=== PATIENT | male | born 2000 ===

== ENCOUNTER 2025-02-13 13:35 | Emergency (ER) | payer BC, SELFPAY ==
--- NOTE | ~2025-02-13 | XR_ITS ---
CLINICAL HISTORY: finger injury, pain 3 view left hand Comparison: None provided Findings: Bones intact. No dislocations. No significant loss of joint space or osteophytes. No erosions. No radiopaque foreign body. 2 mm radiopaque punctate object projected over the distal 1st metatarsal metaphysis, probably on skin. IMPRESSION: 1. No acute osseous injury. 2. 2 mm radiopaque punctate object projected over the distal 1st metatarsal metaphysis, likely on skin. Clinical correlation suggested. This document has been electronically signed by: Tommie Mondragon MD on 02/13/2025 14:50:59
--- NOTE | 2025-02-13 13:39 | ED_ITS ---
HPI - General Adult General Chief complaint: Extremity Injury, Upper Stated complaint: finger inj, stitches? Time Seen by Provider: 02/13/25 13:43 Source: patient Mode of arrival: ambulatory Limitations: no limitations History of Present Illness ED Provider: Delicia Caldwell PA-C HPI narrative: Patient is a 24 year old assigned male at with no reported medical history presenting to the emergency department today with a left index finger laceration. Patient states that he was in a motocross race (250cc) when he smashed his left index finger against a rock. Patient denies any other injury or loss of consciousness. Patient states that he is up to date on tetanus because he gets frequent injuries. Patient denies any other complaints at this time. Related Data Previous Rx's ?Medication ?Instructions ?Recorded amoxicillin 875 mg-potassium 1 tab PO BID 5 days #10 t abs 02/13/25 clavulanate 125 mg tablet Allergies Allergy/AdvReac Type Severity Reaction Status Date / Time No Known Allergies Allergy Verified 02/13/25 13:43 Review of Systems 2 Constitutional: Constitutional: Reports as per HPI Eyes: Eyes: Reports as per HPI ENT: Reports as per HPI Cardiovascular: Cardiovascular: Reports as per HPI Respiratory: Respiratory: Reports as per HPI Gastrointestinal: Gastrointestinal: Reports as per HPI Genitourinary: Genitourinary: Reports as per HPI Musculoskeletal: Musculoskeletal: Reports as per HPI Integumentary/Breasts: Skin/Breast: Reports as per HPI Neurologic: Reports as per HPI Psychiatric: Psychiatric: Reports as per HPI Endocrine: Endocrine: Reports as per HPI Hematologic/Lymphatic: Hematologic/Lymphatic: Reports as per HPI Allergic/Immunologic: Allergic/Immunologic: Reports as per HPI PMF Past Medical History Attestation statement: The following information was validated with the patient. Source: old records reviewed and nursing notes reviewed Social History Social History Advance Directives: No Advance Directives Information Provided: No Physical Exam ED Vital Signs: Vital Signs - 24 hr 02/13/25 13:41 Temperature 97.3 F Pulse Rate 83 Respiratory Rate 18 Blood Pressure 129/61 Pulse Oximetry 98 Oxygen Delivery Method Room Air BMI result Body Mass Index 22.5 Const General: cooperative, no acute distress, alert and awake Nutritional Appearance: well nourished Orientation/consciousness: patient oriented x3 HENMT Head: Yes normal to inspection and Yes atraumatic Ears: hearing grossly normal bilaterally and external ears normal General nose exam: Normal external nose present, no nasal discharge noted and no epistaxis Face and sinus: Yes normal facial exam, No abrasion and No laceration Mouth: Normal oral and palatal mucosa present, no drooling and no muffled voice Eyes General: appearance normal, both eyes and all related structures Periorbital: periorbital findings normal Eyelids: Yes eyelids normal Conjunctivae: conjunctivae normal Pupils: Equal, round and reactive pupils present EOM: EOMs intact bilaterally Neck Neck: Yes normal visual inspection and Yes full ROM Resp Effort & Inspection: normal respiratory effort and able to speak in complete sentences Neuro General: patient oriented x3, moves all extremities and CN's II-XI intact bilaterally Cranial nerves: Yes Equal, round and reactive pupils present Cognition (Neuro): normal cognition Extrem General: Yes full ROM and Yes capillary refill normal Hand/finger images: 2 1. 2.5cm jagged laceration, no active bleeding Psych Appearance: grossly normal Mental Status: mental status grossly normal Affect: normal affect Attitude: cooperative Thought process: Normal thought process present Thought content: Normal thought content present Insight: Good insight present (Psych) Course Course Course Narrative: Rapid medical examination performed in triage by Delicia Caldwell PA-C. Patient is a 24 year old assigned male at presenting to the emergency department with a left index finger injury. Patient is right handed. Patient is up to date on tetanus. Detailed physical exam and review of systems are deferred to the hydraulic press tender. Imaging ordered. Patient placed back in the waiting room pending room availability and results. Medications Administered Discontinued Medications Generic Name Dose Route Start Last Admin Trade Name Lluvia PRN Reason Stop Dose Admin Lidocaine HCl 10 ml 02/13/25 14:06 02/13/25 14:13 Lidocaine Hcl 1 % Mpf 5 Ml Vial SUBCUT 02/13/25 14:07 10 ml ONCE ONE Administration Procedures Laceration Left index finger: Site: other (2nd digit) Side (If applicable): left Size (cm): 2.5 Description: irregular Depth: simple, single layer Local Anesthetic: lidocaine 1% Amount of anesthesia used (mL): 10 Pre-repair: wound explored, irrigated extensively and deep structures intact Skin layer closed with: other (prolene) Size (cm): 5-0 Number of sutures: 5 Technique: simple, interrupted Nerve Block Nerve Block 1: Time out performed: Yes Local Anesthetic: lidocaine 1% Amount of anesthesia used (mL): 10 Side: left Nerve Blocks: digital Procedure Successful: Yes Patient Tolerated Procedure: well Complications: none Medical Decision Making Medical Decision Making MDM Narrative: Patient is a 24 year old assigned male at with no reported medical history presenting to the emergency department today with a left index finger laceration. Patient's physical exam was as noted in the physical exam portion of this note. Patient's left hand x-ray showed no acute process. I explained my physical exam findings as well as all test results to the patient. I answered all questions asked by the patient. Patient's left index finger laceration was repaired, per procedure note, without incident. Patient's PMS was intact prior to and after laceration repair. I stressed the importance of the patient taking his medication as directed (either prescribed or as the over the counter packaging recommends). I stressed the importance of the patient following up with his primary care provider. I stressed the importance of the patient returning to the emergency department immediately if his symptoms were to worsen or if he were to develop any dizziness, shortness of breath, difficulty breathing, chest pain, blurry vision, loss of vision, nausea, vomiting, abdominal pain, fever, chills, back pain, or any other complaints. Patient verbalized agreement and understanding with this treatment plan and discharge. Differential Diagnosis Differential Diagnoses: The differential diagnosis associated with the presentation includes Finger laceration Finger fracture Finger abrasion Finger strain Finger sprain Admission/Observation Consideration of admission/observation: Escalation of care including admission/observation considered Patient would have been admitted to the hospital had his work up had any findings where hospital admission was appropriate and his clinical presentation warranted hospital admission. Independent Interpretation I performed an independent interpretation of an: Plain X-Ray Interpretation: My interpretation is in agreement with the radiologist's impression of this imaging study. L Reason for Exam: finger injury, pain CLINICAL HISTORY: finger injury, pain 3 view left hand Comparison: None provided Findings: Bones intact. No dislocations. No significant loss of joint space or osteophytes. No erosions. No radiopaque foreign body. 2 mm radiopaque punctate object projected over the distal 1st metatarsal metaphysis, probably on skin. IMPRESSION: 1. No acute osseous injury. 2. 2 mm radiopaque punctate object projected over the distal 1st metatarsal metaphysis, likely on skin. Clinical correlation suggested. This document has been electronically signed by: Tommie Mondragon MD on 02/13/2025 14:50:59 Dictated By: Tommie Mondragon MD Signed By: Electronically signed by Tommie Mondragon MD 02/13/25 [id number] Radiology Impression Discussion of test interpretation with radiology: I have reviewed the radiologist's reading. Prescription Management I considered prescription management with: Antibiotic (given the mechanism of injury - patient prophylactically treated. ) Discharge Plan Discharge Clinical Impression: Finger laceration Patient Disposition: Home, Self-Care Instructions: Finger Laceration (ED) Additional Instructions: You need to have your (5) sutures removed in 7-10 days. Take your antibiotic as prescribed. Do NOT soak the affected area. Avoid public bodies of water such as pools, oceans, lakes, [place], etc. Perform daily wound checks and dressing changes. IF you are prescribed home medications and/or you are taking over the counter medications at home - it is very important you continue to do so as prescribed / directed unless told otherwise. Follow up with a primary care provider. Return to the emergency department immediately if your symptoms worsen or if you develop any numbness, tingling, dizziness, shortness of breath, difficulty breathing, chest pain, blurry vision, loss of vision, nausea, vomiting, abdominal pain, fever, chills, back pain, or any other complaints. L If you do not have a primary care provider - call any of the below numbers to establish and follow up with a primary care provider. [facility] Primary Care ([place]) [phone] [place] [address], [address] [facility] Primary Care ([address] [place]) [phone] [place] [address], [address] [facility], [address] [facility] Primary Care ([address] [place]) [phone] [place] [address], [address] [facility], [address] [facility] Primary Care ([place]) [phone] [place] [address], [address] [facility], [address] [facility] Family Medicine [phone] [place] [address], [address] Please see the information below about our Patient Portal. If you are not yet enrolled in the [facility] Patient Portal, you will receive an enrollment email invitation following your visit to any [facility] setting. You may also self-enroll in the Patient Portal by visiting our website: [email or web address] The following information is required to access the Patient Portal: - Your [facility] Medical Record Number - Your personal home email address (must match what is in your electronic medical record, Registration staff can assist with this) - Name - Date of Capabilities of the Patient Portal: - Message some providers - View upcoming appointments - Access your health summary, medical history, and visit history - View current conditions and allergies - View procedure and lab results - View your medications, including guidelines, side effects, and precautions - Complete pre-appointment questionnaires requested by your provider - Ready summary reports of your office visits and procedures To access the Patient Portal Mobile Mary [facility], follow these directions: - Search [employer] in the [employer] Store or [employer] Store - Download the Mary [facility] - Search for [facility] - Enter your login/password Prescriptions: New amoxicillin-pot clavulanate 875-125 mg tablet 1 tab PO BID 5 Days Qty: 10 0RF Stand Alone Forms: Work/School Release Print Language: Belarusian
[2025-02-13 13:41] VITALS: BP 129/61; PULSE 83; RESP 18; TEMP 36.3; O2SAT 98; BMI 22.5
[2025-02-13] MEDS: Lidocaine HCl 1 % MPF 5 ML VIAL 10 ML SUBCUT (14:13)
--- OUTSIDE RECORDS SUMMARY | 2025-02-13 14:43 | XMS_ITS | Encounter Summary ---
Author Organization [facility] Address [address] [place] [address] Care Team Providers Care Chief Fundraising Officer Name Role Phone Familia Vogt MD Primary Care Provider [phone] Familia Vogt MD Unavailable [phone] Alexis Drake LCSW Unavailable [phone] Encounter Details Date Type Department Care Team (Late st Contact Info) Description 01/30/2021 Scanned Document [facility] PRIMARY CARE SCAN Primary Care, Scan Social History Tobacco Use Types Packs/Day Years Used Date Smoking Tobacco: Never Smokeless Tobacco: Never Alcohol Use Standard Drinks/Week Comments No 0 (1 standard drink = 0.6 oz pur e alcohol) Sex and Gender Information Value Date Recorded Sex Assigned at Male 02/11/2024 8:53 AM EDT Legal Sex Male 11:45 AM EDT Gender Identity Male 02/11/2024 8:53 AM EDT Sexual Orientation Not on file documented as of this encounter Plan of Treatment Not on file documented as of this encounter Visit Diagnoses Not on filedocumented in this encounter Care Teams Chief Fundraising Officer Relationship Specialty Start Date End Date Familia Vogt MD [address] [place] [address] PCP - General Family Medicine 01/07/17 Familia Vogt MD [address] [place] [address] PCP - [place] Commercial Attributed 07/31/20 04/01/23 Alexis Drake LCSW [address] [place] [address] Gold Leaf Printer Clinical Social Work 02/21/21 04/10/22 documented as of this encounter
--- OUTSIDE RECORDS SUMMARY | 2025-02-13 14:44 | XMS_ITS | Encounter Summary ---
Author Organization [facility] Address [address] [place] [address] Care Team Providers Care Supplier Manager Name Role Phone Familia Vogt MD Primary Care Provider Familia Vogt MD Unavailable [phone] Alexis DrakeW Unavailable [phone] Reason for Visit * Reason Onset Date Comments Medication Refill 04/30/2021 Encounter Details Date Type Department Care Team (Late st Contact Info) Description 04/30/[address] [phone] Familia Vogt MD [address] [place] [phone] Anxiety Social History Tobacco Use Types Packs/Day Years [...] AM EDT Sexual Orientation Not on file COVID-19 Exposure Response Date Recorded In the last month, have you been in contact with someone who was confirmed or suspected to have Coronavirus / COVID-19? Unable to assess 04/24/2021 3:54 PM EST documented as of this encounter Plan of Treatment Not on file documented as of this encounter Visit Diagnoses Diagnosis Anxiety Anxiety state, unspecified documented in this encounter Care Teams Supplier Manager Relationship Specialty Start Date End Date Familia Vogt MD [address] [place] [address] PCP - General Family Medicine 01/07/17 Familia Vogt MD [address] [place] [address] PCP - [place] Commercial Attributed 07/31/20 04/01/23 Alexis Drake LCSW [address] [place] [address] Gaming Cashier Clinical Social Work 02/21/21 04/10/22 documented as of this encounter
--- OUTSIDE RECORDS SUMMARY | 2025-02-13 14:44 | XMS_ITS | Encounter Summary ---
Author Organization [facility] Address [address] [place] [address] Care Team Providers Care Press Loader Name Role Phone Familia Vogt MD Primary Care Provider [phone] Familia Vogt MD Unavailable [phone] Alexis DrakeW Unavailable [phone] Reason for Visit * Reason Onset Date Comments Medication Refill 08/06/2021 Encounter Details Date Type Department Care Team (Late st Contact Info) Description 08/06/[address] [phone] Familia Vogt MD [address] [place] [phone] Anxiety Social History Tobacco Use Types Packs/Day [...] unspecified documented in this encounter Care Teams Press Loader Relationship Specialty Start Date End Date Familia Vogt MD [address] [place] [address] PCP - General Family Medicine 01/07/17 Familia Vogt MD [address] [place] [address] PCP - [place] Commercial Attributed 07/31/20 04/01/23 Alexis Drake LCSW [address] [place] [address] Md Pediatric Allergist Clinical Social Work 02/21/21 04/10/22 documented as of this encounter
--- OUTSIDE RECORDS SUMMARY | 2025-02-13 14:44 | XMS_ITS | Encounter Summary ---
Author Organization [facility] Address [address] [place] [address] Care Team Providers Care Life Tester [employer] Name Role Phone Familia Vogt MD Primary Care Provider [phone] Familia Vogt MD Unavailable [phone] Alexis Drake LCSW Unavailable [phone] Encounter Details Date Type Department Care Team (Late st Contact Info) Description 12/14/2019 Scanned Document [facility] EMERGENCY MED SCAN Emergency Medicine, Scan Social History Tobacco Use Types Packs/Day [...] or suspected to have Coronavirus / COVID-19? No / Unsure 12/09/2019 10:14 AM EDT documented as of this encounter Plan of Treatment Not on file documented as of this encounter Visit Diagnoses Not on filedocumented in this encounter Care Teams Life Tester [employer] Relationship Specialty Start Date End Date Familia Vogt MD [address] [place] [address] PCP - General Family Medicine 01/07/17 Familia Vogt MD [address] [place] [address] PCP - [place] Commercial Attributed 07/31/20 04/01/23 Alexis Drake LCSW [address] [place] [address] Candy Starch Mold Printer Clinical Social Work 02/21/21 04/10/22 documented as of this encounter
--- OUTSIDE RECORDS SUMMARY | 2025-02-13 14:44 | XMS_ITS | Encounter Summary ---
Author Organization [facility] Address [address] [place] [address] Care Team Providers Care Lockstitch Sleeve Maker Name Role Phone Familia Vogt MD Primary Care Provider Familia Vogt MD Unavailable [phone] Alexis DrakeW Unavailable [phone] Reason for Visit * Reason Onset Date Comments Medication Refill 04/25/2021 Encounter Details Date Type Department Care Team (Late st Contact Info) Description 04/25/[address] [phone] Familia Vogt MD [address] [place] [phone] Anxiety Social History Tobacco Use Types Packs/Day [...] unspecified documented in this encounter Care Teams Lockstitch Sleeve Maker Relationship Specialty Start Date End Date Familia Vogt MD [address] [place] [address] PCP - General Family Medicine 01/07/17 Familia Vogt MD [address] [place] [address] PCP - [place] Commercial Attributed 07/31/20 04/01/23 Alexis Drake LCSW [address] [place] [address] Procurement Cost Coordinator Clinical Social Work 02/21/21 04/10/22 documented as of this encounter
--- OUTSIDE RECORDS SUMMARY | 2025-02-13 14:44 | XMS_ITS | Encounter Summary ---
Author Organization [facility] Address [address] [place] [address] Care Team Providers Care Blacksmith Assistant Name Role Phone Pcp, Nafisa Primary Care Provider Unavailabl e Familia Vogt MD Primary Care Provider Familia Vogt MD Unavailable [phone] Alexis DrakeW Unavailable [phone] Encounter Details Date Type Department Care Team (Late st Contact Info) Description 04/19/2016 Scanned Document [address] [phone] Provider, Generic Social History Tobacco Use Types Packs/Day Years Used Date Smoking Tobacco: Never Alcohol Use Standard Drinks/Week Comments Not Asked 0 (1 standard drink = 0.6 oz [...] on filedocumented in this encounter Care Teams Blacksmith Assistant Relationship Specialty Start Date End Date Pcp, No PCP - General General Medicine 04/19/16 01/06/17 Familia Vogt MD [address] [place] [address] PCP - General Family Medicine 01/07/17 Familia Vogt MD [address] [place] [address] PCP - [place] Commercial Attributed 07/31/20 04/01/23 Alexis Drake LCSW [address] [place] [address] Lithopone Charger Clinical Social Work 02/21/21 04/10/22 documented as of this encounter
--- OUTSIDE RECORDS SUMMARY | 2025-02-13 14:44 | XMS_ITS | Encounter Summary ---
Author Organization [facility] Address [address] [place] [address] Care Team Providers Care Manager Er Name Role Phone Familia Vogt MD Primary Care Provider [phone] Familia Vogt MD Unavailable [phone] Alexis DrakeW Unavailable [phone] Encounter Details Date Type Department Care Team (Late st Contact Info) Description 02/14/2021 Scanned Document [facility] PRIMARY CARE SCAN Primary Care, Scan Social [...] have Coronavirus / COVID-19? No / Unsure 02/12/2021 1:47 PM EDT documented as of this encounter Plan of Treatment Not on file documented as of this encounter Visit Diagnoses Not on filedocumented in this encounter Care Teams Manager Er Relationship Specialty Start Date End Date Familia Vogt MD [address] [place] [address] PCP - General Family Medicine 01/07/17 Familia Vogt MD [address] [place] [address] PCP - [place] Commercial Attributed 07/31/20 04/01/23 Alexis Drake LCSW [address] [place] [address] Executive Search Consultant Clinical Social Work 02/21/21 04/10/22 documented as of this encounter
--- OUTSIDE RECORDS SUMMARY | 2025-02-13 14:44 | XMS_ITS | Clinical Summary ---
Author Organization [facility] Address [address] [place] [address] Phone Care Team Providers Care Band Maker Name Role Phone Familia Reynolds MD Primary Care Provider [phone] Allergies No known active allergies Medications No known medications Active Problems Problem Noted Date Diagnosed Date Abdominal pain 09/07/2024 Stroke ([facility] V24, [facility] V28) 09/07/2024 Surgical History Surgery Date Site/Laterality Comments NO PAST SURGERIES PROCEDURE:NO PAST SURGERIES OTHER SURGICAL HISTORY 11/02/2021 Left PROCEDURE:CLOSED REDUCTION TARSAL FRACTURE;COMMENT:Procedure: ORIF LEFT NAVICULAR BONE AND TALUS; Surgeon: Dennis Tapia MD; Location: [facility] MAIN OPERATING ROOM; Service: Orthopedic Trauma; Laterality: Left; Medical History Medical History Date Comments Anxiety DX:Anxiety Social History Tobacco Use Types Packs/Day Years Used Date Smoking Tobacco: Never Smokeless Tobacco: Never Alcohol Use Standard Drinks/Week Comments Yes 3 (1 standard drink = 0.6 oz pur e alcohol) Sex and Gender Information Value Date Recorded Sex Assigned at Male 09/07/2024 10:50 PM EDT Legal Sex Male 3:47 PM EST Gender Identity Male 09/07/2024 10:50 PM EDT Sexual Orientation Not on file Obstetrics History Last Filed Vital Signs Vital Sign Reading Time Taken Comments Blood Pressure 124/89 09/08/2024 12:32 AM EDT Pulse 75 09/08/2024 12:32 AM EDT Temperature 36.7 C (98.1 F) 09/08/2024 12:32 AM EDT Respiratory Rate 18 09/08/2024 12:32 AM EDT Oxygen Saturation 98% 09/08/2024 12:32 AM EDT Inhaled Oxygen Concentration - - Weight 84.8 kg (187 lb) 09/07/2024 10:16 PM EDT Height 190.5 cm (6' 3 ) 09/07/2024 10:16 PM EDT Body Mass Index 23.37 09/07/2024 10:16 PM EDT Plan of Treatment Health Maintenance Due Date Last Done Comments HPV Vaccines (2 - Male 2-dose series) 12/14/2014 06/16/2014 DTaP,Tdap,and Td Vaccines (7 - Td or Tdap) 01/04/2021 01/04/2011, 03/09/2004, 11/19/2000, Additional history exists Social Influencers of Health Screening 05/01/2022 Depression Screening 06/02/2024 COVID-19 Vaccine ( season) 2025 Influenza Vaccine (#1) 2025 Hepatitis B Vaccines Completed 02/19/2000, 1999, 1999 HIB Vaccines Completed 11/19/2000, 01/31, 1999, Additional history exists IPV Vaccines Completed 03/09/2004, 01/31, 1999, Additional history exists MMR Vaccines Completed 03/09/2004, 08/18/2000 Pneumococcal Vaccine: Pediatrics (0 to 5 Years) and At-Risk Patients (6 to 49 Years) Completed 03/09/2004, 04/03/2000, 02/19/2000 Varicella Vaccines Completed 10/27/2008, 08/18/2000 Meningococcal ACWY Vaccine Aged Out 01/04/2011 N o longer eligible based on patient's age to complete this topic HIV Screening Completed 09/08/2024 Hepatitis C Screening Completed 09/08/2024 Hepatitis A Vaccines Aged Out No long er eligible based on patient's age to complete this topic Meningococcal B Vaccine Aged Out No l onger eligible based on patient's age to complete this topic RSV Immunization Patients Under 20 months Aged Out No longer eligible based on patient's age to complete this topic Medical Devices Implanted Type Area Oral Pathologist Device Identifier Shelf Expiration Date Model / Serial / Lot Bone Chip Canc 5ml Container [facility] [id number] - [id number] Implanted:Qty: 1 on 11/02/2021 by Dennis Tapia MD Left: Foot MUSCULOSKELETAL TRANSPLANT FND 06/08/2024 [id number] / [id number] / Screw Lcking 2.7x18mm Thrd T8 Stry-Tram [id number] Implanted:Qty: 1 on 11/02/2021 by Dennis Tapia MD Left: Foot [employer] [id number] / / Screw Bone 2.7x32mm Thrd T8 Stry-Tram [id number] Implanted:Qty: 1 on 11/02/2021 by Dennis Tapia MD Left: Foot [employer] [id number] / / Bone Graft Hydroset Xt 5ml Stry-Obio [id number] Implanted:Qty: 1 on 11/02/2021 by Dennis Tapia MD Left: Foot [employer] 01/29/2023 [id number] / / [id number] Navicular Plates Implanted:Qty: 1 on 11/02/2021 by Dennis Tapia MD Left: Foot [employer]E [employer] [id number] / / Screw 30mm T8 Fullthrd 2.7mm L Stry-Howm [id number] Implanted:Qty: 2 on 11/02/2021 by Dennis Tapia MD Left: Foot [employer] [id number] / / Screw 36mm T8 Fullthrd 2.7mm S Stry-Howm [id number] Implanted:Qty: 1 on 11/02/2021 by Dennis Tapia MD Left: Foot [employer] [id number] / / 40 Mm 2.0. Screw Implanted:Qty: 1 on 11/02/2021 by Dennis Tapia MD Left: Foot [employer] [id number] / / Screw 40mm T8 Fullthrd 2.7mm L Stry-Howm [id number] Implanted:Qty: 1 on 11/02/2021 by Dennis Tapia MD Left: Foot [employer] [id number] / / Screw Lcking 2.7x22mm Thrd T8 Stry-Tram [id number] Implanted:Qty: 1 on 11/02/2021 by Dennis Tapia MD Left: Foot [employer] [id number] / / Screw Locking 2.7mm T8 Variax Stry-Howm [id number] Implanted:Qty: 1 on 11/02/2021 by Dennis Tapia MD Left: Foot [employer] [id number] / / Procedures Procedure Name Priority Date/Time Associated Diagnosis Comments HEPATITIS PANEL, ACUTE STAT 12:25 AM EDT HIV 1, 2 ANTIBODY, P24 ANTIGEN WITH REFLEX TO DIFFERENTIATION STAT 09/08/2024 12:25 AM EDT from Last 3 Months or Most Recently Relevant to Health Maintenance Results * HIV 1,2 antibody, p24 antigen with reflex to differentiation (09/08/2024 12:25 AM EDT) Pathologist [facility] HIV Combo AB/AG Negative Negative LAB CHEMISTRY METHOD 09/08/2024 1:58 PM EDT [facility] Blood Venous blood specimen / Unknown Venipuncture / Unknown 09/08/2024 12:25 AM EDT 09/08/2024 12:29 AM EDT Narrative [facility] - 09/08/2024 1:58 PM EDT Nonreactive result does not rule out HIV infection. us Dennis Chambers MD LAB BLOOD ORDERABLES Final Res ult [facility] [address] [place] [address], [place] [phone] * Hepatitis panel, acute (09/08/2024 12:25 AM EDT) Hepatitis B Surface Ag Negative Negative LAB CHEMISTRY METHOD 09/08/2024 2:03 PM EDT [facility] Hepatitis A Antibody IgM Negative Negative LAB CHEMISTRY METHOD 09/08/2024 2:03 PM EDT [facility] Hep B Core IgM Negative Negative LAB CHEMISTRY METHOD 09/08/2024 2:03 PM EDT [facility] Hepatitis C Antibody Negative Negative LAB CHEMISTRY METHOD 09/08/2024 2:03 PM EDT [facility] Blood Venous blood specimen / Unknown Venipuncture / Unknown 09/08/2024 12:25 AM EDT 09/08/2024 12:29 AM EDT us Dennis Chambers MD LAB BLOOD ORDERABLES Final Res ult [facility] [address] [place] [address], [place] [phone] from Last 3 Months or Most Recently Relevant to Health Maintenance Insurance [facility] Care Teams Band Maker Relationship Specialty Start Date End Date Familia Reynolds MD [address] [place] [address] PCP - General Psychiatry 09/25/15
--- OUTSIDE RECORDS SUMMARY | 2025-02-13 14:44 | XMS_ITS | Encounter Summary ---
Author Organization [facility] Address [address] [place] [address] Care Team Providers Care Commercial Credit Officer Name Role Phone Familia Vogt MD Primary Care Provider Familia Vogt MD Unavailable [phone] Alexis DrakeW Unavailable [phone] Reason for Visit * Reason Comments Medication Refill Encounter Details Date Type Department Care Team (Late st Contact Info) Description 04/17/[address] [phone] Familia Vogt MD [address] [place], [place] [phone] Anxiety Social History Tobacco Use Types Packs/Day [...] unspecified documented in this encounter Care Teams Commercial Credit Officer Relationship Specialty Start Date End Date Familia Vogt MD [address] [phone] PCP - General Family Medicine 01/07/17 Familia Vogt MD [address] [place] [address] PCP - [place] Commercial Attributed 07/31/20 04/01/23 Alexis Drake LCSW [address] [place] [address] Scroll Assembler Clinical Social Work 02/21/21 04/10/22 documented as of this encounter
--- OUTSIDE RECORDS SUMMARY | 2025-02-13 14:44 | XMS_ITS | Encounter Summary ---
Author Organization [facility] Address [address] [place] [address] Care Team Providers Care Wood Patternmaker Apprentice Name Role Phone Familia Vogt MD Primary Care Provider [phone] Familia Vogt MD Unavailable [phone] Alexis DrakeW Unavailable [phone] Encounter Details Date Type Department Care Team (Late st Contact Info) Description 02/06/2021 Scanned Document [address] [phone] Familia Vogt MD [address] [place] [address] [phone] Social History Tobacco Use Types Packs/Day Years [...] on filedocumented in this encounter Care Teams Wood Patternmaker Apprentice Relationship Specialty [place] [address] [place] [address] [phone] PCP - General Family Medicine 01/07/17 Familia Vogt MD [address] [place], [place] [phone] PCP - [place] Commercial Attributed 07/31/20 04/01/23 Alexis Drake LCSW [address] [place] [address] Magnetizer Clinical Social Work 02/21/21 04/10/22 documented as of this encounter
--- OUTSIDE RECORDS SUMMARY | 2025-02-13 14:44 | XMS_ITS | Encounter Summary ---
Author Organization [facility] Address [address] [place] [address] Care Team Providers Care Tinsel Machine Operator Name Role Phone Familia Vogt MD Primary Care Provider [phone] Familia Vogt MD Unavailable [phone] Alexis DrakeW Unavailable [phone] Encounter Details Date Type Department Care Team (Late st Contact Info) Description 12/22/[address] [phone] Familia Vogt MD [address] [place], [place] [phone] Social History Tobacco Use Types Packs/Day Years [...] on file documented as of this encounter Miscellaneous Notes * Telephone Encounter - Go Macedo LPN - 12/22/2021 2:59 PM EDT ASSISTANT PROFESSOR OF SURGERY MSG: Holly- mom called, requested refill of lexapro Advised provider sent this rx in today and to contact [facility] documented in this encounter Plan of Treatment Not on file documented as of this encounter Visit Diagnoses Not on filedocumented in this encounter Care Teams Tinsel Machine Operator Relationship Specialty Start Date End Date Familia Vogt MD [address] [place] [place] [address] PCP - General Family Medicine 01/07/17 Familia Vogt MD [address] [place] [address] PCP - [place] Commercial Attributed 07/31/20 04/01/23 Alexis Drake LCSW [address] [place] [address] School Based Therapist Clinical Social Work 02/21/21 04/10/22 documented as of this encounter
--- OUTSIDE RECORDS SUMMARY | 2025-02-13 14:44 | XMS_ITS ---
Author Name [facility] Organization Unknown Results Test Name/Text Value Interpretation Date Range Source N gonorrhoea rRNA Spec Ql Probe Negative [facility] C trach rRNA Spec Ql Probe Negative Normal [facility] HSV1 DNA Spec Ql JASMYN+probe Not detected Normal 09/14/2024 - [facility] Specimen source Cvx/Vag Cyto Blood - Plasma Normal [address] [facility] HSV2 DNA Spec Ql JASMYN+probe Not detected Normal 09/14/2024 - [facility] RPR Ser Ql Nonreactive Normal [facility] HBV surface Ag SerPl Ql IA Negative Normal 09/08/2024 - [facility] HAV IgM SerPl Ql IA Negative Normal [facility] HBV core IgM SerPl Ql IA Negative Normal 09/08/2024 - [facility] HCV Ab SerPl Ql IA Negative Normal 09/08/2024 - [facility] HIV 1+2 Ab+HIV1 p24 Ag SerPl Ql IA Negative Normal 09/08/2024 - [facility] History of Medication Use Medication Directions Dispensed Refills Start Date End Date Stat HYDROmorphone (DILAUDID) injection 0.5 mg 0.5 mg, Intravenous, Once, On 02/07/24 at 1215, For 1 doseAdminister IV push over 2-3 minutes. 02/07/2024 completed oxyCODONE (ROXICODONE) 5 MG immediate release tablet Take 1 tablet (5 mg total) by mouth every 6 (six) hours as needed for pain for up to 10 doses. 02/07/2024 active Clobetasol Prop Emollient Base (Clobetasol Propionate E) 0.05 % emollient cream Apply 1 Application topically 2 (two) times a day for 7 days. 09/05/2023 active diphenhydrAMINE-zin c acetate (Benadryl Extra Strength) cream Apply topically 3 (three) times a day as needed for itching. 09/05/2023 active escitalopram (LEXAPRO) 20 MG tablet Take 1 tablet (20 mg total) by mouth daily. 04/05/2022 active escitalopram (LEXAPRO) 20 MG tablet Take 1 tablet (20 mg total) by mouth daily. 04/30/2021 active clonazePAM (KlonoPIN) 1 MG tablet Take 1 tablet (1 mg total) by mouth 2 (two) times a day as needed. 03/28/2021 active No known medications No known medications active Problems Problem Status Onset Date Problem Type Date of Resoluti on Source Fall active EncounterDiagnosisAct [facility] Seizure active 2020-05-04 ProblemAct [facility] Stroke active 2024-09-07 ProblemAct [facility] Colitis active 2019-12-03 ProblemAct [facility] Multiple abrasions active EncounterDiagnosisAct [facility] Muscle strain of right wrist active EncounterDiagnosisAct [facility] H Possible exposure to STI active EncounterDiagnosisAct [facility] Abdominal pain active 2024-09-07 ProblemAct [facility] Anxiety active 2021-02-12 [facility] Immun[facility] Vaccine Date Source Lot Number Status HPV Quadrivalent 06/16/2014 CCT [id number] complete d Meningococcal MCV4P (Menactra) 01/04/2011 CCT [id number] AA completed Tdap 01/04/2011 CCT [id number] completed Influenza Inactivated/Split Preservative Free IM 03/17/2009 CCT [id number] completed Varicella 10/27/2008 CCT [id number] completed DTaP 5 03/09/2004 [facility] completed IPV 03/09/2004 [facility] completed MMR 03/09/2004 CCT completed Pneumococcal Conjugate 7-Valent 03/09/2004 [facility] completed IPV 02/16/2001 CCT completed DTaP 5 11/19/2000 CCT completed Hib (PRP-OMP) 11/19/2000 CCT completed MMR 08/18/2000 CCT completed Varicella 08/18/2000 [facility] completed DTaP 5 02/19/2000 [facility] completed Hepatitis B 02/19/2000 [facility] completed Hib (PRP-OMP) 02/19/2000 [facility] completed Pneumococcal Conjugate 7-Valent 02/19/2000 [facility] completed DTaP 5 1999 [facility] completed Hib (PRP-OMP) 1999 [facility] completed IPV 1999 [facility] completed DTaP 5 1999 [facility] completed Hib (PRP-OMP) 1999 [facility] completed IPV 1999 [facility] completed Hepatitis B 1999 [facility] completed Hepatitis B 1999 [facility] completed Encounters Encounter Type Encounter Reason Primary Diagnosis Location Date Ambulatory Contact with and (suspected) exposure to other bacterial communicable diseases Contact with and (suspected) exposure to other bacterial communicable diseases [facility] 09/29/2024 Inpatient POSSIBLE STD Contact with and (suspected) exposure to infections with a predominantly sexual mode of transmission [facility] 09/07/2024 Ambulatory [facility] 03/12/2024 Ambulatory Abrasion, left lower leg, subsequent encounter Abrasion, left lower leg, subsequent encounter [facility] 02/11/2024 Ambulatory [facility] 02/10/2024 Ambulatory [facility] 02/10/2024 Emergency Unspecified fall, initial encounter Unspecified fall, initial encounter [facility] 02/07/2024 Ambulatory Allergic contact dermatitis due to plants, except food Allergic contact dermatitis due to plants, except food [facility] 11/03/2023 Emergency Allergic contact dermatitis due to plants, except food Allergic contact dermatitis due to plants, except food [facility] 09/05/2023 Emergency Localized enlarged lymph nodes Localized enlarged lymph nodes [facility] 05/18/2023 Ambulatory COVID-19 COVID-19 [facility] 03/11/2023 Ambulatory Unspecified acute conjunctivitis, left eye Unspecified acute conjunctivitis, left eye [facility] 01/06/2023 Emergency Unspecified spra in of unspecified foot, initial encounter [facility] 11/30/2022 Ambulatory Encounter for preprocedural laboratory examination [facility] 11/01/2021 Ambulatory Acute maxillary sinusitis, unspecified [facility] 04/24/2021 Care Team Organization Name Specialty Phone Email Start Date End [facility] 12/30/2024 [facility] 09/30/2024 10/29/2024 [facility] 09/25/2024 [facility] 09/11/2024 [facility] 09/08/2024 [facility] 04/16/2024 025 [facility] 06/22/2023 [facility] 11/30/2022 12/14/2024 [facility] 11/3011/30/2022 [facility] 11/01/2021 10/30/19 [facility] 04/24/2021 04/24/2021
--- OUTSIDE RECORDS SUMMARY | 2025-02-13 14:44 | XMS_ITS | Encounter Summary ---
Author Organization [facility] Address [address] [place] [address] Care Team Providers Care Stretch Box Tender Name Role Phone Familia Vogt MD Primary Care Provider Familia Vogt MD Unavailable [phone] Alexis DrakeW Unavailable [phone] Reason for Visit * Reason Comments Medication Refill Encounter Details Date Type Department Care Team (Late st Contact Info) Description 07/22/[address] [phone] Familia Vogt MD [address] [place], [place] [phone] Anxiety Social History Tobacco Use Types Packs/Day [...] unspecified documented in this encounter Care Teams Stretch Box Tender Relationship Specialty Start Date End Date Familia Vogt MD [address] [phone] PCP - General Family Medicine 01/07/17 Familia Vogt MD [address] [place] [address] PCP - [place] Commercial Attributed 07/31/20 04/01/23 Alexis Drake LCSW [address] [place] [address] Rn Field Case Manager Clinical Social Work 02/21/21 04/10/22 documented as of this encounter
--- OUTSIDE RECORDS SUMMARY | 2025-02-13 14:44 | XMS_ITS | Encounter Summary ---
Author Organization [facility] Address [address] [place] [address] Care Team Providers Care Dental Office Receptionist Name Role Phone Familia Vogt MD Primary Care Provider [phone] Familia Vogt MD Unavailable [phone] Alexis DrakeW Unavailable [phone] Encounter Details Date Type Department Care Team (Late st Contact Info) Description 02/16/[address] [phone] Familia Vogt MD [address] [place] [phone] Social History Tobacco Use Types Packs/Day Years [...] encounter Miscellaneous Notes * Telephone Encounter - Aimee Ramsay MA - 02/19/2018 10:15 AM EDT TCT pt, n/a. Sent letter to call our office for a message. * Telephone Encounter - Aimee Ramsay MA - 02/18/2018 10:31 AM EDT TCT pt, lm for c/b. * Telephone Encounter - Aimee Ramsay MA - 02/17/2018 2:53 PM EDT TCT pt, lm for c/b. * Telephone Encounter - Familia Vogt MD - 02/16/2018 5:33 PM EDT Needs appt here to examine, unless he was already seen somewhere else? * Telephone Encounter - Aimee Ramsay MA - 02/16/2018 4:51 PM EDT Looks like the patient has not seen you for this medical issues. Apt first, before PT? * Telephone Encounter - Su Anderson - 02/16/2018 11:39 AM EDT Patient has a partial tear in his clafe muscle that's not getting better, wondering if he can have a referral to PT documented in this encounter Plan of Treatment Not on file documented as of this encounter Visit Diagnoses Not on filedocumented in this encounter Care Teams Dental Office Receptionist Relationship Specialty Start Date End Date Familia Vogt MD [address] [place] [address] PCP - General Family Medicine 01/07/17 Familia Vogt MD [address] [place] [address] PCP - [place] Commercial Attributed 07/31/20 04/01/23 Alexis Drake LCSW [address] [place] [address] Cooker Helper Clinical Social Work 02/21/21 04/10/22 documented as of this encounter
--- OUTSIDE RECORDS SUMMARY | 2025-02-13 14:44 | XMS_ITS | Encounter Summary ---
Author Organization [facility] Address [address] [place] [address] Care Team Providers Care Compression Molding Machine Operator Name Role Phone Familia Vogt MD Primary Care Provider Familia Vogt MD Unavailable [phone] Alexis DrakeW Unavailable [phone] Reason for Visit * Reason Onset Date Comments Medication Refill 12/14/2021 Encounter Details Date Type Department Care Team (Late st Contact Info) Description 12/14/[address] [phone] [place] [address] [place] [phone] Anxiety Social History Tobacco Use Types Packs/Day [...] unspecified documented in this encounter Care Teams Compression Molding Machine Operator Relationship Specialty Start Date End Date Familia Vogt MD [address] [place] [address] PCP - General Family Medicine 01/07/17 Familia Vogt MD [address] [place] [address] PCP - [place] Commercial Attributed 07/31/20 04/01/23 Alexis Drake LCSW [address] [place] [address] Swage Toolsetter Clinical Social Work 02/21/21 04/10/22 documented as of this encounter
--- OUTSIDE RECORDS SUMMARY | 2025-02-13 14:44 | XMS_ITS | Encounter Summary ---
Author Organization [facility] Address [address] [place] [address] Care Team Providers Care Dot Compliance Specialist Name Role Phone Familia Vogt MD Primary Care Provider [phone] Reason for Visit * Reason Comments Appointment Talked to Dr Vogt o n the phone about light sensitivity and getting a tint exeption for his car and there are no appts coming up with him he would like a call back Encounter Details Date Type Department Care Team (Late st Contact Info) Description 09/10/2024 Telephone [facility] [address] [place] [address] Familia Vogt MD [address] [place] [address] Appointment (Talked to Dr Vogt on the phone about light sensitivity and getting a tint exeption for his car and there are no appts coming up with him he would like a call back) Social History Tobacco Use Types Packs/Day Years [...] on filedocumented in this encounter Care Teams Dot Compliance Specialist Relationship Specialty Start Date End Date Familia Vogt MD [address] [place] [address] PCP - General Family Medicine 01/07/17 documented as of this encounter
--- OUTSIDE RECORDS SUMMARY | 2025-02-13 14:44 | XMS_ITS | Encounter Summary ---
Author Organization [facility] Address [address] [place] [address] Care Team Providers Care Orange Grower Name Role Phone Familia Vogt MD Primary Care Provider [phone] Familia Vogt MD Unavailable [phone] Alexis DrakeW Unavailable [phone] Reason for Visit * Reason Comments Medication Refill Encounter Details Date Type Department Care Team (Late st Contact Info) Description 08/09/[address] [phone] Familia Vogt MD [address] [place], [place] [address] Anxiety Social History Tobacco Use Types Packs/Day [...] unspecified documented in this encounter Care Teams Orange Grower Relationship Specialty Start Date End Date Familia Vogt MD [address] [phone] PCP - General Family Medicine 01/07/17 Familia Vogt MD [address] [place] [address] PCP - [place] Commercial Attributed 07/31/20 04/01/23 Alexis Drake LCSW [address] [place] [address] Circulating Process Inspector Clinical Social Work 02/21/21 04/10/22 documented as of this encounter
--- OUTSIDE RECORDS SUMMARY | 2025-02-13 14:44 | XMS_ITS | Encounter Summary ---
Author Organization [facility] Address [address] [place] [address] Care Team Providers Care Wood Heel Flap Inserter Name Role Phone Familia Vogt MD Primary Care Provider [phone] Familia Vogt MD Unavailable [phone] Alexis DrakeW Unavailable [phone] Reason for Visit * Reason Comments Medication Refill Encounter Details Date Type Department Care Team (Late st Contact Info) Description 10/31/[address] [phone] Familia Vogt MD [address] [place], [place] [address] Anxiety Social History Tobacco Use Types Packs/Day [...] unspecified documented in this encounter Care Teams Wood Heel Flap Inserter Relationship Specialty Start Date End Date Familia Vogt MD [address] [phone] PCP - General Family Medicine 01/07/17 Familia Vogt MD [address] [place] [address] PCP - [place] Commercial Attributed 07/31/20 04/01/23 Alexis Drake LCSW [address] [place] [address] Agency Sales Development Associate Clinical Social Work 02/21/21 04/10/22 documented as of this encounter
--- OUTSIDE RECORDS SUMMARY | 2025-02-13 14:44 | XMS_ITS | Clinical Summary ---
Author Organization [facility] Address [address] [place] [address] Care Team Providers Care Hospital Housekeeper Name Role Phone Gail CABA MD, [facility] Primary Care Provider Allergies No known active allergies Medications Medication Sig Dispensed Refills Start Date End Date Status clonazePAM (KlonoPIN) 1 MG tablet Take 1 tablet (1 mg total) by mouth 2 (two) times a day as needed. 0 03/28/2021 Active escitalopram (LEXAPRO) 20 MG tablet Take 1 tablet (20 mg total) by mouth daily. 0 04/30/2021 Active acetaminophen (TYLENOL) 325 MG tablet Take 3 tablets (975 mg total) by mouth every 8 (eight) hours as needed for pain. 60 tablet 0 11/02/2021 Active senna-docusate (Senokot S) 8.6-50 MG Take 1 tablet by mouth daily. Take this medication while on narcotics to prevent constipation. 60 tablet 0 11/02/2021 Active meloxicam (Mobic) 15 MG tablet Take 1 tablet (15 mg total) by mouth daily. 30 tablet 0 01/30/2022 Active ibuprofen 800 MG tablet Take 1 tablet (800 mg total) by mouth every 8 (eight) hours as needed for pain for up to 15 doses. 15 tablet 0 05/18/2023 Active diphenhydrAMINE-zin c acetate (Benadryl Extra Strength) cream Apply topically 3 (three) times a day as needed for itching. 28.4 g 0 09/05/2023 Active oxyCODONE (ROXICODONE) 5 MG immediate release tablet Take 1 tablet (5 mg total) by mouth every 6 (six) hours as needed for pain for up to 10 doses. 10 tablet 0 02/07/2024 Active Active Problems Problem Noted Date Diagnosed Date Seizure 05/04/2020 Colitis 12/03/2019 Social History Tobacco Use Types Packs/Day Years Used Date Smoking Tobacco: Never Smokeless Tobacco: Never Alcohol Use Standard Drinks/Week Comments Yes 3 (1 standard drink = 0.6 oz pur e alcohol) Sex and Gender Information Value Date Recorded Sex Assigned at Male 01/05/2019 3:31 PM EDT Gender Identity Male 05/18/2023 1:51 PM EST Sexual Orientation Not on file Job Start Date Occupation Industry Not on file Not on file Not on file Last Filed Vital Signs Vital Sign Reading Time Taken Comments Blood Pressure 134/68 02/07/2024 2:28 PM EDT Pulse 66 02/07/2024 2:28 PM EDT Temperature 36.4 C (97.6 F) 02/07/2024 2:28 PM EDT Respiratory Rate 18 02/07/2024 2:28 PM EDT Oxygen Saturation 99% 02/07/2024 2:28 PM EDT Inhaled Oxygen Concentration - - Weight 87.1 kg (192 lb) 02/07/2024 11:42 AM EDT Height 190.5 cm (6' 3 ) 02/07/2024 11:42 AM EDT Body Mass Index 24 02/07/2024 11:42 AM EDT Plan of Treatment Health Maintenance Due Date Last Done Comments Hepatitis C Screening 1999 COVID-19 Vaccine (#1) 02/15/2000 Depression Screening 2011 Preventative Health Evaluation 08/14/2017 DTap / Tdap / Td (7 - Td or Tdap) 01/04/2021 01/04/2011, 03/09/2004, 03/09/2004, Additional history exists Influenza Vaccine (#1) 2025 Hepatitis B Vaccines Completed 02/19/2000, 02/19/2000, 1999, Additional history exists Pneumococcal Vaccine Completed 03/09/2004, 04/03/2000, 02/19/2000 RSV Ped < 20 months Aged Out No longe r eligible based on patient's age to complete this topic Medical Devices Implanted Type Area Combat Systems Operator Mine Warfare Device Identifier Shelf Expiration Date Model / Serial / Lot Bone Chip Canc 5ml Container [facility] [id number] - [id number] Implanted:Qty: 1 on 11/02/2021 by Dennis Tapia MD at [facility] Left: Foot MUSCULOSKELETAL TRANSP FNDTN 06/08/2024 [id number] / [id number] / Screw Lcking 2.7x22mm Thrd T8 Stry-Tram [id number] - [id number] Implanted:Qty: 1 on 11/02/2021 by Dennis Tapia MD at [facility] Left: Foot [employer] [id number] / / Screw Locking 2.7mm T8 Variax Stry-Howm [id number] - [id number] Implanted:Qty: 1 on 11/02/2021 by Dennis Tapia MD at [facility] Left: Foot [employer] [id number] / / Screw Lcking 2.7x18mm Thrd T8 Stry-Tram [id number] - [id number] Implanted:Qty: 1 on 11/02/2021 by Dennis Tapia MD at [facility] Left: Foot [employer] [id number] / / Screw Bone 2.7x32mm Thrd T8 Stry-Tram [id number] - [id number] Implanted:Qty: 1 on 11/02/2021 by Dennis Tapia MD at [facility] Left: Foot [employer] [id number] / / Bone Graft Hydroset Xt 5ml Stry-Obio [id number] - [id number] Implanted:Qty: 1 on 11/02/2021 by Dennis Tapia MD at [facility] Left: Foot [employer] 01/29/2023 [id number] / / [id number] Navicular Plates Implanted:Qty: 1 on 11/02/2021 by Dennis Tapia MD at [facility] Left: Foot [employer] [id number] / / Screw 30mm T8 Fullthrd 2.7mm L Stry-Howm [id number] - [id number] Implanted:Qty: 2 on 11/02/2021 by Dennis Tapia MD at [facility] Left: Foot [employer] [id number] / / Screw 36mm T8 Fullthrd 2.7mm S Stry-Howm [id number] - [id number] Implanted:Qty: 1 on 11/02/2021 by Dennis Tapia MD at [facility] Left: Foot [employer] [id number] / / 40 Mm 2.0. Screw Implanted:Qty: 1 on 11/02/2021 by Dennis Tapia MD at [facility] Left: Foot [employer] [id number] / / Screw 40mm T8 Fullthrd 2.7mm L Stry-Howm 936261-227656 - [id number] Implanted:Qty: 1 on 11/02/2021 by Dennis Tapia MD at [facility] Left: Foot [employer] [id number] / / Explanted Type Area Combat Systems Operator Mine Warfare Device Identifier Shelf Expiration Date Model / Serial / Lot Screw 40mm T8 Fullthrd 2.7mm L Stry-Howm [id number] - [id number] Explanted:Qty: 1 on 11/02/2021 by Dennis Tapia MD at [facility] Left: Foot [employer] [id number] / / Screw 36mm T8 Fullthrd 2.7mm S Stry-Howm [id number] - [id number] Explanted:Qty: 1 on 11/02/2021 by Dennis Tapia MD at [facility] Left: Foot [employer] [id number] / / Screw 45mm T8 Fullthrd 2.7mm S Stry-Howm [id number] - [id number] Explanted:Qty: 1 on 11/02/2021 by Dennis Tapia MD at [facility] Left: Foot [employer] [id number] / / Bone Screw T8 Ft 2.7x50mm Stry-Howm [id number] - [id number] Explanted:Qty: 1 on 11/02/2021 by Dennis Tapia MD at [facility] Left: Foot [employer] [id number] / / Advance Directives For more information, please contact: [phone] Latest Code Status on File Code Status Date Activated Date Inactivated Comments Full Code 05/04/2020 10:49 PM 05/05/2020 3:19 PM This code status was ascertained in the following way: Discussed with pt . Code Status History Code Status Date Activated Date Inactivated Comments Full Code 12/03/2019 12:23 PM 12/05/2019 5:52 PM This c ode status was ascertained in the following way: discussion with patient . Care Teams Hospital Housekeeper Relationship Specialty Start Date End Date Familia Reynolds III, MD [address] [facility] [address], [place] [address] PCP - General Psychiatry 09/25/15
--- OUTSIDE RECORDS SUMMARY | 2025-02-13 14:44 | XMS_ITS | Clinical Summary ---
Author Organization [facility] Address [address] [place] [address] Care Team Providers Care Art Department Head Name Role Phone Familia Vogt MD Primary Care Provider [phone] Source Comments Please note that some or all of the patient's information could have additional privacy protections. State laws allow health care providers to render certain types of treatment to minors without parental consent. Please do not assume that this information can be shared solely by obtaining just the consent of the patient's parent/guardian. Please determine if all or part of the patient's care was rendered without parent/guardian involvement. And, if so, obtain the minor's consent prior to disclosure.[facility] Social History Tobacco Use Types Packs/Day Years Used Date Smoking Tobacco: Never Assessed Sex and Gender Information Value Date Recorded Sex Assigned at Not on file Legal Sex Male 2:16 AM EST Gender Identity Not on file Sexual Orientation Not on file Plan of Treatment Not on file Insurance [employer] Care Teams Art Department Head Relationship Specialty Start Date End Date Familia Vogt MD [address] [place] [address] PCP - General 06/18/13
--- OUTSIDE RECORDS SUMMARY | 2025-02-13 14:44 | XMS_ITS | Encounter Summary ---
Author Organization [facility] Address [address] [place] [address] Care Team Providers Care Electric Fan Assembler Name Role Phone Familia Vogt MD Primary Care Provider [phone] Familia Vogt MD Unavailable [phone] Alexis DrakeW Unavailable [phone] Encounter Details Date Type Department Care Team (Late st Contact Info) Description 02/13/2021 Scanned Document [facility] PRIMARY CARE SCAN Primary Care, Scan Social [...] on filedocumented in this encounter Care Teams Electric Fan Assembler Relationship Specialty Start Date End Date Familia Vogt MD [address] [place] [address] PCP - General Family Medicine 01/07/17 Familia Vogt MD [address] [place] [address] PCP - [place] Commercial Attributed 07/31/20 04/01/23 Alexis Drake LCSW [address] [place] [address] [place] Clinical Social Work 02/21/21 04/10/22 documented as of this encounter
--- OUTSIDE RECORDS SUMMARY | 2025-02-13 14:44 | XMS_ITS | Encounter Summary ---
Author Organization [facility] Address [address] [place] [address] Care Team Providers Care Business Performance Advisor Name Role Phone Familia Vogt MD Primary Care Provider [phone] Familia Vogt MD Unavailable [phone] Alexis DrakeW Unavailable [phone] Reason for Visit * Reason Comments Other Encounter Details Date Type Department Care Team (Late st Contact Info) Description 04/08/[address] [phone] Familia Vogt MD [address] [place] [phone] Other Social History Tobacco Use Types Packs/Day Years [...] on filedocumented in this encounter Care Teams Business Performance Advisor Relationship Specialty Start Date End Date Familia Vogt MD [address] [place] [phone] PCP - General Family Medicine 01/07/17 Familia Vogt MD [address] [place] [address] PCP - [place] Commercial Attributed 07/31/20 04/01/23 Alexis Drake LCSW [address] [place] [address] Malt House Operator Clinical Social Work 02/21/21 04/10/22 documented as of this encounter
--- OUTSIDE RECORDS SUMMARY | 2025-02-13 14:44 | XMS_ITS | Clinical Summary ---
Author Organization [facility] Address [address] [place] [address] Care Team Providers Care Coat Check Attendant Name Role Phone Familia Vogt MD Primary Care Provider [phone] Allergies No known active allergies Medications * This document contains information received from the source organization and may not represent a complete record from that organization. ibuprofen (MOTRIN) 800 mg tablet 3 times daily (every 8 hours) as needed. 5 Active erythromycin (ILOTYCIN) ophthalmic ointmentIndicat ions:Hordeolum externum of right upper eyelid Administer 1 application(s) to the right eye nightly. 3.5 g 5 Active Active Problems Problem Noted Date Diagnosed Date Anxiety 02/12/2021 Resolved Problems Problem Noted Date Diagnosed Date Resolved Date Well child visit 11/06/2009 12/09/2019 Immunizations Immunization Administration Dates Next Due DTaP 5 03/09/2004, 1,02/19/2000,12/17,1999 HPV Quadrivalent 06/16/2014 Hepatitis B 02/19/2000,1999,1999 Hib (PRP-OMP) 11/19/2000, 0,1999,10/14 IPV 03/09/2004, 1,1999,10/14 Influenza Inactivated/Split Preservative Free IM 03/17/2009 MMR 03/09/2004,08/18/2000 Meningococcal MCV4P (Menactra) 01/04/2011 Pneumococcal Conjugate 7-Valent 03/09/2004,02/18 Tdap 01/04/2011 Varicella 10/27/2008,08/18/2000 Social History Tobacco Use Types Packs/Day Years Used Date Smoking Tobacco: Never Smokeless Tobacco: Never Tobacco Cessation:Counseling Given: Not Answered Alcohol Use Standard Drinks/Week Comments No 0 (1 standard drink = 0.6 oz pur e alcohol) Sex and Gender Information Value Date Recorded Sex Assigned at Male 02/11/2024 8:53 AM EDT Legal Sex Male 11:45 AM EDT Gender Identity Male 02/11/2024 8:53 AM EDT Sexual Orientation Not on file Last Filed Vital Signs Vital Sign Reading Time Taken Comments Blood Pressure 117/72 09/29/2024 1:40 PM EDT Pulse 78 09/29/2024 1:40 PM EDT Temperature 37.8 C (100.1 F) 09/29/2024 1:40 PM EDT Respiratory Rate 18 09/29/2024 1:40 PM EDT Oxygen Saturation 96% 09/29/2024 1:40 PM EDT Inhaled Oxygen Concentration - - Weight 80.7 kg (178 lb) 09/29/2024 1:40 PM EDT Height 190.5 cm (6' 3 ) 09/29/2024 1:40 PM EDT Body Mass Index 22.25 09/29/2024 1:40 PM EDT Plan of Treatment Health Maintenance Due Date Last Done Comments Hepatitis C Virus Screening 1999 HIV Screening 08/14/2012 HPV Vaccines (2 - Male 2-dose series) 12/14/2014 06/16/2014 Physical 08/14/2017 DTaP/Tdap/Td Vaccines (7 - Td or Tdap) 01/04/2021 01/04/2011, 03/09/2004, 11/19/2000, Additional history exists Influenza Vaccine 12/31/2024 03/17/2009 COVID-19 Vaccine ( season) 2025 Hepatitis B Vaccines Completed 02/19/2000, 1999, 1999 Pneumococcal Vaccine: Pediatric (0-5 Years) and At-Risk Patients (6 to 49 Years) Aged Out 03/09/2004, 02/19/2000 No longer eligibl e based on patient's age to complete this topic [facility] Care Teams Coat Check Attendant Relationship Specialty Start Date End Date Familia Vogt MD [address] [place] [address] PCP - General Family Medicine 01/07/17
== END 2025-02-13 15:11 | disposition home or self-care (01) ==
PROVIDERS: Emergency Provider Emergency Medicine
DX: S61.211A Laceration without foreign body of left index finger without damage to nail, initial encounter (principal); M79.642 Pain in left hand; W45.8XXA Other foreign body or object entering through skin, initial encounter; Y93.9 Activity, unspecified; Y92.9 Unspecified place or not applicable; Y99.8 Other external cause status
CPT/HCPCS: 12001; 64450; 73130; 99281; 99284; J2003

== ENCOUNTER → 2025-02-13 13:43 | Outpatient (BNV) | payer BC, SELFPAY | PROVIDERS: Emergency Provider Emergency Medicine; Visit Provider Radiology Diagnostic Radiology | DX: M79.645 Pain in left finger(s) (principal) | CPT/HCPCS: 73130 ==